=== PATIENT | male | born 1950 | race Caucasian/White ===

== ENCOUNTER 2024-01-01 11:51 | Emergency (ER) | payer OTHER, MEDICARE ==
[2024-01-01 12:04] VITALS: TEMP 97.9
[2024-01-01 12:35] VITALS: BMI 31.4
[2024-01-01] MEDS ORDERED: KETOROLAC TROMETHAMINE 30 MG/1 ML VIAL ONE (13:46)
[2024-01-01] MEDS ORDERED: diphenhydrAMINE HCL 25 MG CAPSULE (FP) PO ONE (13:46)
[2024-01-01] MEDS: diphenhydrAMINE HCL 25 MG CAPSULE (FP) PO ONE (13:51)
[2024-01-01] MEDS: KETOROLAC TROMETHAMINE 30 MG/1 ML VIAL IM ONE (13:52)
[2024-01-01 15:52] VITALS: BP 122/75; PULSE 67; RESP 14
== END 2024-01-01 16:37 | disposition home or self-care (01) ==
LOC: JER 11:51
PROC: 3E0133Z Introduction of Anti-inflammatory into Subcutaneous Tissue, Percutaneous Approach (ICD-10-PCS; principal; 2024-01-01)
DX: M25.511 Pain in right shoulder (principal); X50.1XXA Overexertion from prolonged static or awkward postures, initial encounter; Y93.B9 Activity, other involving muscle strengthening exercises
CPT/HCPCS: 73030-TC-RT-FY; 99284-25